=== PATIENT | male | born 1955 | race Caucasian/White ===

== ENCOUNTER 2020-04-22 10:31 | Emergency (ER) | payer MEDICAID, MEDICARE ==
[~2020-04-22] VITALS: Ht 167.6 cm; Wt 74.3 kg
[~2020-04-22 10:31] MED LIST: ALBU90AE INH
--- NOTE | 2020-04-22 10:50 | NUR ---
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
[2020-04-22] MEDS ORDERED: CARBAMIDE PEROXIDE EAR DROPS 6.5%, 15ML EACH EAR ONE (11:00)
[2020-04-22] MEDS ORDERED: LORazepam 1MG TABLET PO ONE (11:00)
[2020-04-22] MEDS ORDERED: CARBAMIDE PEROXIDE EAR DROPS 6.5%, 15ML ONE (11:17)
[2020-04-22] MEDS ORDERED: LORazepam 1MG TABLET ONE (11:17)
[2020-04-22 13:04] VITALS: BP 126/76
--- NOTE | 2020-04-22 13:04 | NUR ---
PT LAYING ON GURNEY AWAKE & CALMER AFTER ATIVAN, RESPONDS APPROP TO STAFF, NAD WHILE AWAITING EAR IRRIGATION, NO NEEDS AT THIS TIME, CALL LIGHT WITHIN REACH.
--- NOTE | 2020-04-22 13:47 | NUR ---
PT ELOPED WHILE AWAITING EAR IRRIGATION- PA & MD AWARE.
== END 2020-04-22 14:11 | disposition left against medical advice (07) ==
LOC: ED 12:43
DX: J45.30 Mild persistent asthma, uncomplicated (principal); H61.23 Impacted cerumen, bilateral; R07.89 Other chest pain; R06.00 Dyspnea, unspecified; R06.02 Shortness of breath; F17.200 Nicotine dependence, unspecified, uncomplicated
CPT/HCPCS: 71045; 93005; 99283

== ENCOUNTER 2020-05-08 10:44 | Emergency (ER) | payer MEDICARE ==
[~2020-05-08] VITALS: Ht 170.2 cm; Wt 71.0 kg
--- NOTE | 2020-05-08 10:50 | NUR ---
NO EKG IN TRIAGE D/T PT MOVEMENT
[2020-05-08] MEDS ORDERED: ZIPRASIDONE 20 MG INJ IM ONE ×2 (11:30→11:33)
[2020-05-08 11:49] LABS: AMPHETAMINE SCREEN, URINE Positive (Negative); BARBITURATE SCREEN, URINE Negative (Negative); BENZODIAZEPINE SCREEN, URINE Negative (Negative); CANNABINOID SCREEN, URINE Negative (Negative); COCAINE SCREEN, URINE Negative (Negative); METHADONE SCREEN, URINE Negative (Negative); OPIATE SCREEN, URINE Negative (Negative)
[2020-05-08 11:52] LABS: BASOPHILS # (AUTO) 0.02 x10^3/uL (0-0.1); BASOPHILS % (AUTO) 0 % (0-1); EOSINOPHILS # (AUTO) 0.19 x10^3/uL (0-0.4); EOSINOPHILS % (AUTO) 2 % (1-7); LYMPHOCYTES # (AUTO) 1.69 x10^3/uL (1-3.4); LYMPHOCYTES % (AUTO) 20 % (22-44); MD NO; MEAN CORPUSCULAR HEMOGLOBIN 30.7 pg (27.5-34.5); MEAN PLATELET VOLUME 7.7 fL (7.4-10.4); MONOCYTES % (AUTO) 7 % (2-9); NEUTROPHILS # (AUTO) 6.12 x10^3/uL (1.8-6.8); NEUTROPHILS % (AUTO) 71 % (42-75); PLATELET COUNT 274 x10^3/uL (130-400); RED BLOOD COUNT 5.04 x10^6/uL (4.38-5.82)
[2020-05-08 12:04] LABS: ALBUMIN 3.7 g/dL (3.4-5.0); ANION GAP 6 mmol/L (5-15); CALCIUM 9.2 mg/dL (8.5-10.1); CHLORIDE 109 mmol/L (98-107)
[2020-05-08 12:05] LABS: SALICYLATE LEVEL < 1.7 mg/dL (2.8-20.0)
[2020-05-08 12:07] LABS: ALANINE AMINOTRANSFERASE 11 U/L (12-78); ALKALINE PHOSPHATASE 58 U/L (45-117); BILIRUBIN,TOTAL 1.1 mg/dL (0.2-1.0); CREATININE 1.25 mg/dL (0.7-1.3); TOTAL PROTEIN 7.6 g/dL (6.4-8.2)
[2020-05-08] MEDS ORDERED: LORazepam 1MG TABLET ONE (12:35)
[2020-05-08] MEDS ORDERED: LORazepam 1MG TABLET PO ONE (13:00)
[2020-05-08 13:06] VITALS: BP 110/77
== END 2020-05-08 13:09 | disposition home or self-care (01) ==
LOC: ED 11:25
DX: F41.1 Generalized anxiety disorder (principal); F15.10 Other stimulant abuse, uncomplicated; R53.1 Weakness; R63.0 Anorexia; R00.0 Tachycardia, unspecified
CPT/HCPCS: 36415; 80053; 80307; 85025; 93005; 96372; 99284; J3486

== ENCOUNTER 2020-05-15 02:41 | Emergency (ER) | payer MEDICARE ==
[~2020-05-15] VITALS: Ht 172.7 cm; Wt 75.3 kg
[2020-05-15 02:51] VITALS: BP 118/71
== END 2020-05-15 04:22 | disposition home or self-care (01) ==
LOC: ED 03:50
DX: F11.129 Opioid abuse with intoxication, unspecified (principal); Z72.9 Problem related to lifestyle, unspecified; F17.200 Nicotine dependence, unspecified, uncomplicated
CPT/HCPCS: 99281